=== PATIENT | female | born 1980 | race Caucasian/White ===

== ENCOUNTER 2017-01-31 11:56 | Emergency (ER) | payer BC ==
[2017-01-31] MEDS ORDERED: OXYCODONE-ACETAMINOPHEN 5-325 MG TABLET PO ONE (12:27)
[2017-01-31] MEDS ORDERED: ONDANSETRON 4 MG TAB.RAPDIS PO ONE (12:27)
--- NOTE | 2017-01-31 12:27 | ER Document Report ---
ED Medical Screen (RME) - General Stated Complaint: HEADACHE Notes: 36 yo female c/o headache since last night. headache all over the head. + nasuea. + photosensitivity. no neck pain + hx/o stroke, residual memory loss. last stroke in 2006. no neurological deficits noted, no slurred speech, no facial droop TRAVEL OUTSIDE OF THE [place] IN LAST 30 DAYS: No - Related Data Allergies/Adverse Reactions: nickel [Nickel] Allergy (Severe, Verified 01/31/17 12:21) rash penicillin G [Penicillin G] Allergy (Severe, Verified 01/31/17 12:21) Anaphylaxis Past Medical History - Past Medical History Cardiac Medical History: Denies: Hx Coronary Artery Disease, Hx Heart Attack, Hx Hypertension Pulmonary Medical History: Denies: Hx Asthma, Hx Bronchitis, Hx COPD, Hx Pneumonia Neurological Medical History: Reports: Hx Cerebrovascular Accident - 7 years ago. Denies: Hx Seizures Musculoskeltal Medical History: Denies Hx Arthritis Past Surgical History: Denies: Hx Hysterectomy, Hx Pacemaker - Immunizations Hx Diphtheria, Pertussis, Tetanus Vaccination: No
[2017-01-31] MEDS ORDERED: NORMAL SALINE 1000 ML 1,000 ML IV ONE (14:41)
[2017-01-31] MEDS ORDERED: MORPHINE SULFATE 10 MG/ML INJ IV ONE ×2 (14:41→20:13)
--- NOTE | 2017-01-31 14:51 | ER Document Report ---
ED General - General Chief Complaint: Headache Stated Complaint: HEADACHE Time seen by provider: 14:30 Mode of Arrival: Ambulatory Information source: Patient, Relative Notes: 36-year-old female reports sudden onset of diffuse headache last night while coughing. She reports some nausea and photophobia that began at the same time. 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 He reports related to that she had to the thromboses "burst" with subsequent memory loss. She reports she was diagnosed with a stroke at that point but has no other residual deficits. She has had no headaches like this since then up until last night. He is not aware of any fever at home. She reports she's been in normal state of health otherwise recently. 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 She has no complaints of pain numbness weakness to extremity, earache, sore throat, or new visual disturbances. She reports no relief with Zofran and Percocet administered in triage. She reports with the episode 10 years ago she was transferred to [facility] but doesn't believe she required any surgery for her problem. Physical Exam: General: Alert, appears uncomfortable HEENT: Normocephalic. Atraumatic. PERRLA. Extraocular movements intact. Discs sharp no papilledema sclerae anicteric no conjunctival injection area tympanic membranes and canals clear. Oropharynx clear. Neck: Supple. Non-tender. No JVD no carotid bruits Respiratory: No respiratory distress. Clear and equal breath sounds bilaterally. Cardiovascular: Regular rate and rhythm. Abdominal: Normal Inspection. Soft, non-tender. No distension. Normal Bowel Sounds. Back: Non-tender. No deformity or step off. Extremities: Moves all four extremities. Upper extremities: Normal inspection. Non-tender. Normal color. Normal ROM. Normal temperature. Lower extremities: Normal inspection. Non-tender. No edema. Normal color. Normal ROM. Normal temperature. Neurological: Cranial nerves III-XII grossly intact bilaterally. Strength 5/5 throughout. Sensation intact to light touch. Normal cognition. AAOx4. Normal speech. Patient does frequently repeat that she has a headache but otherwise answers questions appropriately. Cerebellar function intact by finger-nose test bilaterally. Patient is able to sit up without difficulty and has no nystagmus Psychological: Normal affect. Normal Mood. Skin: Warm. Dry. Normal color.m TRAVEL OUTSIDE OF THE [place] IN LAST 30 DAYS: No - Related Data Allergies/Adverse Reactions: nickel [Nickel] Allergy (Severe, Verified 01/31/17 12:21) rash penicillin G [Penicillin G] Allergy (Severe, Verified 01/31/17 12:21) Anaphylaxis Past Medical History - Social History Smoking Status: Current Every Day Smoker Chew tobacco use (# tins/day): Yes Family History: Other - Mother has what sounds like by description normal pressure hydrocephalus with ROOFING MACHINE TENDER shunt Patient has suicidal ideation: No Patient has homicidal ideation: No - Past Medical History Cardiac Medical History: Denies: Hx Coronary Artery Disease, Hx Heart Attack, Hx Hypertension Pulmonary Medical History: Denies: Hx Asthma, Hx Bronchitis, Hx COPD, Hx Pneumonia Neurological Medical History: Reports: Hx Cerebrovascular Accident - 7 years ago , Other - Sagittal sinus thrombosis. Denies: Hx Seizures Renal/ Medical History: Denies: Hx Peritoneal Dialysis Musculoskeltal Medical History: Denies Hx Arthritis Past Surgical History: Denies: Hx Hysterectomy, Hx Pacemaker - Immunizations Hx Diphtheria, Pertussis, Tetanus Vaccination: No Review of Systems - Review of Systems Constitutional: denies: Chills, Diaphoresis, Weakness EENT: denies: Ear pain, Throat pain Cardiovascular: denies: Chest pain, Syncope Respiratory: denies: Cough, Short of breath Gastrointestinal: denies: Abdominal pain, Diarrhea, Vomiting, Blood in vomit, Black stools, Rectal bleeding Genitourinary: denies: Burning, Dysuria Female Genitourinary: No symptoms reported Musculoskeletal: denies: Back pain, Muscle pain Skin: denies: Rash Hematologic/Lymphatic: denies: Swollen glands Neurological/Psychological: See HPI Physical Exam - Vital signs Vitals: Temp Pulse BP Pulse Ox 100.2 F 104 H 106/65 93 01/31/17 13:30 01/31/17 13:30 01/31/17 13:30 01/31/17 13:30 Course - Re-evaluation Re-evalutation: 01/31/17 23:31 On multiple re-evaluations patient has remained neurologically intact except for her chronic short-term memory problems. She is transient relief with morphine and Zofran she seemed to get more improvement in her headache with Reglan 10 mg IV. The patient reports that multiple family members confirm that her current symptoms and presentation are similar to what she had approximately 10 years ago resulting in a diagnosis of sagittal sinus thrombosis for which she was transferred to [facility]. The family brings her medical record from her initial admission [place] and discharge summary an H&P from her transfer to [facility] which showed that she had at that time an MRI showed multiple infarcts. She also did a LP that was negative. At [facility] she was violated by neurosurgery but never had any type of operative intervention. She also had a hypercoagulable workup which was negative for protein C and Cardiolipin. Given that history I discussed her negative CT brain findings with Dr. Watson and she agreed to perform MRI MRA [place] and MRV all of which been read as normal. Patient continued to have headaches after those results and given her low-grade fever I believe the lumbar puncture was required to definitively rule out life-threatening etiologies potentially debilitating etiologies and patient is in agreement. All she had receive medication for headache she is competent to consent for lumbar puncture this was performed without difficulty and shows no evidence for subarachnoid hemorrhage, meningitis, or encephalitis. I discussed these findings the patient is comfortable with discharge with outpatient follow-up. CT scans have shown sinusitis and I doubt that is the etiology for her headache but this will be covered with antibiotics. 01/31/17 23:40 - Vital Signs Vital signs: Temp Pulse Resp BP Pulse Ox 99.1 F 97 14 105/55 L 90 L 01/31/17 20:36 01/31/17 20:36 01/31/17 20:36 01/31/17 20:36 01/31/17 20:36 - Laboratory Result Diagrams: 01/31/17 15:20 01/31/17 15:20 Laboratory results interpreted by me: 01/31/17 01/31/17 15:20 15:20 RDW 14.6 H Seg Neutrophils % 83.0 H Lymphocytes % 5.4 L Absolute Lymphocytes 0.3 L Sodium 136.6 L - Diagnostic Test Radiology reviewed: Image reviewed, Reports reviewed Procedures - Lumbar Puncture Lumbar puncture Time completed: 10:10 Consent obtained: Yes Lumbar puncture pre-procedure: Betadine prep applied, Chloraprep applied, Sterile drapes applied Patient position: Lying Lumbar puncture location: L4-5 Anesthetic type: 1% Lidocaine mL's of anesthetic: 2 Amount/type of drainage: 6 mL clear fluid Number of attempts: 1 Complications: No Discharge - Discharge Clinical Impression: Headache Qualifiers: Headache type: unspecified Headache chronicity pattern: acute headache Intractability: intractable Qualified Code(s): R51 - Headache Condition: Stable Disposition: HOME, SELF-CARE Additional Instructions: Headache The physician does not feel that the headache you are experiencing has a serious underlying cause. Most headaches are due to emotional stress, with resultant muscle tension (tension headache). Occasionally, headaches are secondary to changes in the blood vessels of the scalp (vascular headache and migraine headache). Sometimes, a headache is the first symptom of another developing illness, such as a viral infection. You have no evidence of stroke, bleeding, meningitis, or other serious cause of your headache. The treatment of headaches varies with the severity and cause of the pain. Not all headaches need pain shots. In fact, there is evidence that using narcotics for headaches may make them worse in the long run. The physician will determine the therapy that's in your best interest. If you develop a fever, if the headache is different from any you've previously experienced, or if the headache progressively worsens, then call your physician at once or go to the emergency room. Prescriptions: Azithromycin [Zithromax 250 mg Tablet] 250 mg PO ASDIR PRN #6 tablet PRN Reason: Metoclopramide HCl [Reglan 10 mg Tablet] 10 mg PO ACHS PRN #20 tablet PRN Reason: For Headache Referrals: JULISA PALOMO MD [EMERITUS] - Follow up in 1 week
[2017-01-31 15:44] LABS: PROTHROMBIN TIME 14.1 SEC (11.4-15.4)
[2017-01-31 15:45] LABS: PARTIAL THROMBOPLASTIN TIME 32.2 SEC (23.5-35.8)
[2017-01-31 16:01] LABS: ABSOLUTE LYMPHOCYTES (AUTO) 0.3 10^3/uL (0.5-4.7); ABSOLUTE MONOCYTES (AUTO) 0.7 10^3/uL (0.1-1.4); ALANINE AMINOTRANSFERASE 35 U/L (9-52); ALBUMIN 4.4 g/dL (3.5-5.0); ALKALINE PHOSPHATASE 66 U/L (38-126); ANION GAP 11 (5-19); ASPARTATE AMINO TRANSFERASE 24 U/L (14-36); BASOPHILS % (AUTO) 0.6 % (0-2); BILIRUBIN,TOTAL 0.6 mg/dL (0.2-1.3); BLOOD UREA NITROGEN 10 mg/dL (7-20); CALCIUM 9.5 mg/dL (8.4-10.2); CARBON DIOXIDE 25 mmol/L (22-30); CHLORIDE 101 mmol/L (98-107); CREATININE RESULT 0.75 mg/dL (0.52-1.25); GLUCOSE 90 mg/dL (75-110); HEMATOCRIT 36.5 % (36.0-47.0); HEMOGLOBIN 12.4 g/dL (12.0-15.5); HGB HCT DIFFERENCE 0.7; LYMPHOCYTES % (AUTO) 5.4 % (13-45); MEAN CORPUSCULAR HEMOGLOBIN 30.3 pg (27.0-33.4); MEAN CORPUSCULAR HGB CONC 33.8 g/dL (32.0-36.0); MEAN CORPUSCULAR VOLUME 89 fl (80-97); POTASSIUM 3.9 mmol/L (3.6-5.0); RED BLOOD COUNT 4.09 10^6/uL (3.72-5.28); RED CELL DISTRIBUTION WIDTH 14.6 % (11.5-14.0); SODIUM 136.6 mmol/L (137-145); TOTAL PROTEIN 7.2 g/dL (6.3-8.2); WHITE BLOOD COUNT 6.1 10^3/uL (4.0-10.5)
[2017-01-31] MEDS ORDERED: ONDANSETRON HCL INJ/PF 4 MG/2 ML SDV IV ONE (20:14)
[2017-01-31] MEDS ORDERED: PROMETHAZINE HCL INJ 25 MG/1 ML VIAL IV ONE (21:15)
[2017-01-31] MEDS ORDERED: LIDOCAINE 1% INJ-PF (10 MG/ML) 30 ML SDV INJ ONE (21:16)
[2017-01-31] MEDS ORDERED: METOCLOPRAMIDE HCL INJ/PF 10 MG/2 ML SDV IV ONE (21:24)
[2017-01-31] MEDS ORDERED: METOCLOPRAMIDE HCL INJ/PF 10 MG/2 ML SDV ONE (21:26)
[2017-01-31 22:58] LABS: GLUCOSE,CSF 63 mg/dL (40-70)
[2017-01-31 23:09] LABS: APPEARANCE ALL TUBES CLEAR; APPEARANCE TUBE 1 CLEAR; APPEARANCE TUBE 2 CLEAR; APPEARANCE TUBE 3 CLEAR
[2017-01-31 23:10] LABS: RBC DILUENT USED NONE USED; RBC SIDE 1 0; RBC SIDE 2 0
[2017-01-31 23:11] LABS: RBC DILUTION FACTOR 1
[2017-01-31 23:12] LABS: TOTAL RBC SQUARES COUNTED 225
[2017-01-31 23:13] LABS: WHITE BLOOD CELL,CSF 1 /uL (0-5)
[2017-01-31 23:23] LABS: APPEARANCE ALL TUBES CLEAR; APPEARANCE TUBE 1 CLEAR; APPEARANCE TUBE 2 CLEAR; APPEARANCE TUBE 3 CLEAR
[2017-01-31 23:24] LABS: RBC DILUENT USED NONE USED; RBC DILUTION FACTOR 1; RBC SIDE 1 0; RBC SIDE 2 0
[2017-01-31 23:25] LABS: TOTAL RBC SQUARES COUNTED 225
[2017-01-31 23:26] LABS: WHITE BLOOD CELL,CSF 1 /uL (0-5)
[2017-02-01 00:54] VITALS: BP 109/61
== END 2017-02-01 00:15 | disposition home or self-care (01) ==
LOC: ER 11:56
PROC: 009U3ZX Drainage of Spinal Canal, Percutaneous Approach, Diagnostic (ICD-10-PCS; principal; 2017-01-31)
DX: R51 Headache (principal); R50.9 Fever, unspecified; R11.0 Nausea; H53.149 Visual discomfort, unspecified; H54.41 Blindness, right eye, normal vision left eye; I69.311 Memory deficit following cerebral infarction; F17.200 Nicotine dependence, unspecified, uncomplicated; Z91.048 Other nonmedicinal substance allergy status; Z87.892 Personal history of anaphylaxis; Z88.0 Allergy status to penicillin
CPT/HCPCS: 96376; 99284; 96374; 96375; 36415; 87070; 87205; 84703; 85025; 85610; 85730; 89050; 82945; 84157; 80053; 70551; 70544; 70450; 62270; S0119; J3490; J2765; J2270; J2405; J7030

== ENCOUNTER 2017-02-02 11:53 | Emergency (ER) | payer BC ==
--- NOTE | 2017-02-02 12:25 | ER Document Report ---
ED Medical Screen (RME) - General Stated Complaint: HEADACHE Notes: Patient was seen in the emergency room on 01/31 for the same headache. MRI, CT of head showed paranasal sinus disease, no other abnormality noted. patient still has the headache, ibuprofen is not helping. Patient has had some nausea and vomiting. I have greeted and performed a rapid initial assessment of this patient. A comprehensive ED assessment and evaluation of the patient, analysis of test results and completion of the medical decision making process will be conducted by additional ED providers. TRAVEL OUTSIDE OF THE [place] IN LAST 30 DAYS: No - Related Data Allergies/Adverse Reactions: nickel [Nickel] Allergy (Severe, Verified 01/31/17 12:21) rash penicillin G [Penicillin G] Allergy (Severe, Verified 01/31/17 12:21) Anaphylaxis Past Medical History - Past Medical History Cardiac Medical History: Denies: Hx Coronary Artery Disease, Hx Heart Attack, Hx Hypertension Pulmonary Medical History: Denies: Hx Asthma, Hx Bronchitis, Hx COPD, Hx Pneumonia Neurological Medical History: Reports: Hx Cerebrovascular Accident - 7 years ago. Denies: Hx Seizures Renal/ Medical History: Denies: Hx Peritoneal Dialysis Musculoskeltal Medical History: Denies Hx Arthritis Past Surgical History: Denies: Hx Hysterectomy, Hx Pacemaker - Immunizations Hx Diphtheria, Pertussis, Tetanus Vaccination: No Physical Exam - Vital signs Vitals: Temp Pulse Resp BP Pulse Ox 98.2 F 70 18 147/106 H 99 02/02/17 12:05 02/02/17 12:05 02/02/17 12:05 02/02/17 12:05 02/02/17 12:05 - General General appearance: Alert In distress: Moderate Notes: pt holding head. Pt got out of wheelchair and layed on floor in RME. Course - Vital Signs Vital signs: Temp Pulse Resp BP Pulse Ox 98.2 F 70 18 147/106 H 99 02/02/17 12:05 02/02/17 12:05 02/02/17 12:05 02/02/17 12:05 02/02/17 12:05
[2017-02-02] MEDS ORDERED: NORMAL SALINE 1000 ML 1,000 ML IV ONE (14:02)
[2017-02-02] MEDS ORDERED: METOCLOPRAMIDE HCL INJ/PF 10 MG/2 ML SDV IV ONE (14:03)
[2017-02-02] MEDS ORDERED: DIPHENHYDRAMINE HCL 50 MG/ML VIAL IV ONE (14:03)
--- NOTE | 2017-02-02 14:15 | ER Document Report ---
ED Headache - General Chief Complaint: Headache Stated Complaint: HEADACHE Mode of Arrival: Ambulatory Information source: Patient Notes: Patient presents complaining of headache that started early Sunday morning, 2 days ago. Patient states that the headache started suddenly 2 days ago and has persisted since then. Patient was evaluated in emergency department 2 days ago and had an extensive workup including CT, MRI, MRA, MRV of the brain as well as a lumbar puncture. Patient was discharged home with Reglan and azithromycin to treat sinus infection that was noted on CT scan. Patient thought that the Reglan was only to treat nausea symptoms and so did not take this medication while at home. Patient denies any headache improvement with the use of Motrin 400 mg [id number]. Patient states that she did have a low-grade temperature 2 days ago but none today. Patient does report lateral neck tenderness. Patient denies any recent sick contacts. Patient also reports that she recently started taking bupropion 2 weeks ago to treat depression. Patient states that prior to taking the bupropion she had recently started Prozac but discontinued this medication as it gave her headaches. Patient does report that her father is in the ICU, and tears up when she talks of this. 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 Patient states that her headache pain worsens when she sits and has photophobia. TRAVEL OUTSIDE OF THE [place] IN LAST 30 DAYS: No - HPI Patient complains to provider of: Headache Patient reports: Prior CVA, Other - Sagittal sinus thrombosis 10 years ago. No : Hx chronic headaches Onset was: Abrupt Timing: Still present Quality of pain: Sharp Pain Level: 5 Context: denies: Head injury, Meningitis exposure Associated symptoms: Neck pain, Photophobia. denies: Chills, Fever, Lightheaded , Nausea/vomiting, Stiff neck Exacerbated by: Light, Position Similar symptoms previously: Yes Recently seen / treated by doctor: Yes - Related Data Allergies/Adverse Reactions: nickel [Nickel] Allergy (Severe, Verified 02/02/17 12:25) rash penicillin G [Penicillin G] Allergy (Severe, Verified 02/02/17 12:25) Anaphylaxis Past Medical History - General Information source: Patient - Social History Smoking Status: Current Every Day Smoker Chew tobacco use (# tins/day): No Frequency of alcohol use: None Drug Abuse: None Occupation: [employer] Lives with: Family Family History: Other - Mother has what sounds like by description normal pressure hydrocephalus with HEARING SCREENER shunt Patient has suicidal ideation: No Patient has homicidal ideation: No - Past Medical History Cardiac Medical History: Denies: Hx Coronary Artery Disease, Hx Heart Attack, Hx Hypertension Pulmonary Medical History: Denies: Hx Asthma, Hx Bronchitis, Hx COPD, Hx Pneumonia Neurological Medical History: Reports: Hx Cerebrovascular Accident - 7 years ago. Denies: Hx Seizures Renal/ Medical History: Denies: Hx Peritoneal Dialysis Musculoskeltal Medical History: Denies Hx Arthritis Psychiatric Medical History: Reports: Hx Depression Past Surgical History: Reports: Hx Section. Denies: Hx Hysterectomy - Immunizations Hx Diphtheria, Pertussis, Tetanus Vaccination: No Review of Systems - Review of Systems Constitutional: No symptoms reported. denies: Fever EENT: No symptoms reported. denies: Blurred vision Cardiovascular: No symptoms reported. denies: Chest pain, Dizziness Respiratory: No symptoms reported. denies: Cough Gastrointestinal: No symptoms reported. denies: Vomiting Genitourinary: No symptoms reported Female Genitourinary: No symptoms reported Musculoskeletal: Neck pain. denies: Back pain Skin: No symptoms reported. denies: Rash Hematologic/Lymphatic: No symptoms reported Neurological/Psychological: Headaches. denies: Confusion, Weakness, Lost consciousness Physical Exam - Vital signs Vitals: Temp Pulse Resp BP Pulse Ox 98.2 F 70 18 147/106 H 99 02/02/17 12:05 02/02/17 12:05 02/02/17 12:05 02/02/17 12:05 02/02/17 12:05 - General General appearance: Appears well, Alert In distress: None - HEENT Head: Normocephalic, Atraumatic Eyes: Normal Conjunctiva: Normal Extraocular movements intact: Yes Eyelashes: Normal Pupils: PERRL Nerve palsy: No Ears: Normal External canal: Normal Tympanic membrane: Normal Nasal: Normal. No: Swelling Mouth/Lips: Normal Mucous membranes: Normal Pharynx: Normal. No: Erythema, Exudate Neck: Other - Patient with posterior paraspinal cervical muscle tenderness with palpation, no midline tenderness. No: Brudzinski, Kernig's, Lymphadenopathy, Meningismus - Respiratory Respiratory status: No respiratory distress Chest status: Nontender Breath sounds: Normal. No: Rales, Rhonchi, Stridor, Wheezing Chest palpation: Normal - Cardiovascular Rhythm: Regular Heart sounds: S1 appreciated, S2 appreciated Murmur: No - Abdominal Inspection: Normal Distension: No distension Bowel sounds: Normal Tenderness: Nontender Organomegaly: No organomegaly - Back Back: Normal. No: CVA tenderness, Vertebra tenderness - Extremities General upper extremity: Normal inspection, Normal ROM General lower extremity: Normal inspection, Normal ROM - Neurological Neuro grossly intact: Yes Cognition: Normal Orientation: AAOx4 [place] Coma Scale Eye Opening: Spontaneous [place] Coma Scale Verbal: Oriented [place] Coma Scale Motor: Obeys Commands [place] Coma Scale Total: 15 Speech: Normal. No: Dysarthria Cranial nerves: Normal. No: Facial palsy Cerebellar coordination: Normal, Heel-gordon, Finger-nose rhombey, Rapid alt. movements. No: Gait ataxia Motor strength normal: LUE, RUE, LLE, RLE - Psychological Associated symptoms: Depressed - Skin Skin Temperature: Warm Skin Moisture: Dry Skin Color: Normal Course - Re-evaluation Re-evalutation: 02/02/17 14:[address] cobb regarding patient presentation. Reviewed patient's previous ER visit diagnostic evaluation. Does not recommend any additional imaging studies or testing. Recommends possible Lidoderm patch for cervical tenderness. Agrees with pain management plan at this time. 02/02/17 15:29 Patient reports that headache pain is decreased from a 5 to a 3/5. Patient able to ambulate without difficulty to the bathroom unassisted. 02/02/17 16:57 Patient reports headache pain is improved, other not completely gone. Discussed possible treatment options including a possible blood patch. Patient declines having this procedure at this time and would like to see her she can manage her symptoms at home she had not previously been taking her Reglan that was prescribed. Discussed worsening signs or symptoms that patient should return to [facility] for. Patient verbalized understanding of her instructions. - Vital Signs Vital signs: Temp Pulse Resp BP Pulse Ox 98.7 F 54 L 16 97/59 L 97 02/02/17 17:35 02/02/17 17:35 02/02/17 17:35 02/02/17 17:35 02/02/17 17:35 - Diagnostic Test Radiology reviewed: Reports reviewed - Reviewed MRI, MRA, MRV, and CT report from previous ER visit Discharge - Discharge Clinical Impression: Headache Qualifiers: Headache type: unspecified Headache chronicity pattern: acute headache Intractability: intractable Qualified Code(s): R51 - Headache Condition: Stable Disposition: HOME, SELF-CARE Instructions: Headache ([facility]), Reglan ([facility]), Use of Diphenhydramine Additional Instructions: Return immediately for any new or worsening symptoms Followup with your primary care provider, call tomorrow to make a followup appointment You are on a medication, Wellbutrin, that can cause the side effect of headache pain. I would discuss with your doctor your headache symptoms and medication regimen. Take the Reglan your prescribed previously as directed to help with her symptoms. Stay well-hydrated, you can increase caffeinated drinks to help with your headache symptoms. Follow-up with a neurologist for further evaluation Finish your prescription for the antibiotics to treat for any possible sinusitis Forms: Return to Work Referrals: FAMILIA ROSA MD [ACTIVE STAFF] - 02/05/17
[2017-02-02] MEDS ORDERED: DEXAMETHASONE SOD PHOS INJ 10 MG/1 ML VIAL IV ONE (14:24)
[2017-02-02] MEDS ORDERED: NORMAL SALINE 1000 ML 1,000 ML IV PRN (15:28)
[2017-02-02] MEDS ORDERED: MORPHINE SULFATE 10 MG/ML INJ IV ONE (15:29)
[2017-02-02 17:48] VITALS: BP 97/59
== END 2017-02-02 17:35 | disposition home or self-care (01) ==
LOC: ER 11:53
DX: J32.9 Chronic sinusitis, unspecified (principal); Z91.14 Patient's other noncompliance with medication regimen; R51 Headache; M54.2 Cervicalgia; H53.149 Visual discomfort, unspecified; F32.9 Major depressive disorder, single episode, unspecified; F17.200 Nicotine dependence, unspecified, uncomplicated; Z79.899 Other long term (current) drug therapy; Z86.73 Personal history of transient ischemic attack (TIA), and cerebral infarction without residual deficits; Z88.0 Allergy status to penicillin
CPT/HCPCS: 99283; 96361; 96374; 96375; J1200; J2765; J2270; J7030; J1100

== ENCOUNTER 2017-08-12 07:36 | Emergency (ER) | payer BC ==
[2017-08-12 07:41] VITALS: BP 90/59
--- NOTE | 2017-08-12 07:47 | ER Document Report ---
HPI - HPI Patient complains to provider of: Cannot breathe through nose Onset: Other - 2 days ago Onset/Duration: Sudden Pain Level: 2 Context: 36-year-old female complaining of nasal congestion and inability to move air through each of her nostrils that started 2 days ago. She was exposed to the laundry I will with heavily scented detergents during a work-related in-service and is wondering if this is caused by an allergy. No fever or chills. No recent upper respiratory infection. Associated Symptoms: None Exacerbated by: Denies Relieved by: Denies - ROS ROS below otherwise negative: Yes Systems Reviewed and Negative: Yes All other systems reviewed and negative - DERM Skin Color: Normal Past Medical History - General Information source: Patient - Social History Smoking Status: Current Every Day Smoker Frequency of alcohol use: Rare Drug Abuse: None Lives with: Family Family History: Other - Mother has what sounds like by description normal pressure hydrocephalus with [employer]ER shunt Neurological Medical History: Reports: Hx Cerebrovascular Accident - 7 years ago Renal/ Medical History: Denies: Hx Peritoneal Dialysis Psychiatric Medical History: Reports: Hx Depression Past Surgical History: Reports: Hx Section - Immunizations Hx Diphtheria, Pertussis, Tetanus Vaccination: No Vertical Provider Document - CONSTITUTIONAL Agree With Documented VS: Yes Exam Limitations: No Limitations - INFECTION CONTROL TRAVEL OUTSIDE OF THE [place] IN LAST 30 DAYS: No - HEENT HEENT: Normocephalic. negative: Tympanic Membrane Red Notes: nasal turbinates edematous - NECK Neck: Supple. negative: Lymphadenopathy-Left, Lymphadenopathy-Right - RESPIRATORY Respiratory: Breath Sounds Normal, No Respiratory Distress O2 Sat by Pulse Oximetry: 99 - CARDIOVASCULAR Cardiovascular: Regular Rate, Regular Rhythm - MUSCULOSKELETAL/EXTREMETIES Musculoskeletal/Extremeties: MAEW, FROM - NEURO Level of Consciousness: Awake, Alert, Appropriate - DERM Integumentary: Warm, Dry Course - Vital Signs Vital signs: Temp Pulse Resp BP Pulse Ox 99.1 F 96 20 90/59 L 99 08/12/17 07:40 08/12/17 07:40 08/12/17 07:40 08/12/17 07:40 08/12/17 07:40 Discharge - Discharge Clinical Impression: nasal turbinate swelling Allergic rhinosinusitis Qualifiers: Chronicity: acute Allergic rhinitis trigger: unspecified Allergic rhinitis seasonality: non-seasonal Qualified Code(s): J30.89 - Other allergic rhinitis Condition: Good Disposition: HOME, SELF-CARE Instructions: Use of Diphenhydramine, Sinusitis ([facility]), Steroid Medication, Warm Packs ([facility]) Additional Instructions: topical nasal decongestant for 2 days only after you use the nasal spray use over the counter saline spray to help get the mucous out, then use the nasal steroid as prescribed to er if worse, any concerns take benadryl 25-50 mg every 4-6 hours as needed for allergy symptms see ENT doctor if persists Please complete the patient satisfaction survey if you get one, and return it.. If you do not receive a survey, then you can go to the [facility] website, [email or web address] and place your comments about your very good care. Thank you very much. It was a pleasure being your medical provider today. Prescriptions: Fluticasone Propionate [Flonase Nasal [place] 50 Mcg/[place] 16 gm] 1 spray NASL Q12 #1 inhaler Forms: Return to Work
[2017-08-12] MEDS ORDERED: IBUPROFEN 600 MG TABLET PO ONE (08:29)
== END 2017-08-12 08:37 | disposition home or self-care (01) ==
LOC: ER 07:36
DX: J30.89 Other allergic rhinitis (principal); R09.81 Nasal congestion; F17.200 Nicotine dependence, unspecified, uncomplicated; Z86.73 Personal history of transient ischemic attack (TIA), and cerebral infarction without residual deficits
CPT/HCPCS: 99283

== ENCOUNTER 2018-01-31 15:38 | Emergency (ER) | payer BC ==
[2018-01-31] MEDS ORDERED: FENTANYL CITRATE INJ/PF 100 MCG/2 ML AMPUL IV ONE (16:21)
--- NOTE | 2018-01-31 16:22 | ER Document Report ---
ED General - General Chief Complaint: Chest Wall Pain Stated Complaint: DIFFICULTY BREATHING Time Seen by Provider: 01/31/18 16:14 Mode of Arrival: Ambulatory Information source: Patient Notes: 37-year-old female history of cavernous sinus thrombosis presents with complaints of right lower rib wall pain. pt notes she took a deep breath and then the pain suddenly occurred. pt is a smoker, denies any previous similar episodes. TRAVEL OUTSIDE OF THE [place] IN LAST 30 DAYS: No - HPI Onset: Just prior to arrival Onset/Duration: Sudden Quality of pain: Sharp Severity: Mild Pain Level: 1 Associated symptoms: Body/muscle aches, Shortness of breath Exacerbated by: Movement, Coughing, Deep breathing Relieved by: Denies Similar symptoms previously: No Recently seen / treated by doctor: No - Related Data Allergies/Adverse Reactions: nickel [Nickel] Allergy (Severe, Verified 01/31/18 16:14) rash penicillin G [Penicillin G] Allergy (Severe, Verified 01/31/18 16:14) Anaphylaxis Past Medical History - Social History Smoking Status: Current Every Day Smoker Cigarette use (# per day): Yes Chew tobacco use (# tins/day): No Smoking Education Provided: Yes - Patient counselled regarding cessation for 4 minutes Frequency of alcohol use: Occasional Drug Abuse: None Family History: Other - Mother has what sounds like by description normal pressure hydrocephalus with ANALYTICAL TECHNICIAN shunt Patient has suicidal ideation: No Patient has homicidal ideation: No - Past Medical History Cardiac Medical History: Denies: Hx Coronary Artery Disease, Hx Heart Attack, Hx Hypertension Pulmonary Medical History: Denies: Hx Asthma, Hx Bronchitis, Hx COPD, Hx Pneumonia Neurological Medical History: Reports: Hx Cerebrovascular Accident - 7 years ago. Denies: Hx Seizures Renal/ Medical History: Denies: Hx Peritoneal Dialysis Musculoskeltal Medical History: Denies Hx Arthritis Psychiatric Medical History: Reports: Hx Depression Past Surgical History: Reports: Hx Section. Denies: Hx Hysterectomy, Hx Pacemaker - Immunizations Hx Diphtheria, Pertussis, Tetanus Vaccination: No Review of Systems - Review of Systems Notes: REVIEW OF SYSTEMS: CONSTITUTIONAL : Denies fever, chills, or sweats. Denies recent illness. EENT: Denies eye, ear, throat, or mouth pain or symptoms. Denies nasal or sinus congestion or discharge. Denies throat, tongue, or mouth swelling or difficulty swallowing. CARDIOVASCULAR: Denies chest pain. Denies palpitations or racing or irregular heart beat. Denies ankle edema. RESPIRATORY: chest wall pain, pain with movement GASTROINTESTINAL: Denies abdominal pain or distention. Denies nausea, vomiting , or diarrhea. Denies blood in vomitus, stools, or per rectum. Denies black, tarry stools. Denies constipation. GENITOURINARY: Denies difficulty urinating, painful urination, burning, frequency, blood in urine, or discharge. FEMALE GENITOURINARY: Denies vaginal bleeding, heavy or abnormal periods, irregular periods. Denies vaginal discharge or odor. MUSCULOSKELETAL: Denies back or neck pain or stiffness. Denies joint pain or swelling. SKIN: Denies rash, lesions or sores. HEMATOLOGIC : Denies easy bruising or bleeding. LYMPHATIC: Denies swollen, enlarged glands. NEUROLOGICAL: Denies confusion or altered mental status. Denies passing out or loss of consciousness. Denies dizziness or lightheadedness. Denies headache. Denies weakness or paralysis or loss of use of either side. Denies problems with gait or speech. Denies sensory loss, numbness, or tingling. Denies seizures. PSYCHIATRIC: Denies anxiety or stress. Denies depression, suicidal ideation, or homicidal ideation. ALL OTHER SYSTEMS REVIEWED AND NEGATIVE. PHYSICAL EXAMINATION: GENERAL: Well-appearing, well-nourished and in no acute distress. HEAD: Atraumatic, normocephalic. EYES: Pupils equal round and reactive to light, extraocular movements intact, conjunctiva are normal. ENT: Nares patent, oropharynx clear without exudates. Moist mucous membranes. NECK: Normal range of motion, supple without lymphadenopathy LUNGS: Breath sounds clear to auscultation bilaterally and equal. No wheezes rales or rhonchi. Point tenderness of the right mid clavicular R9-10 HEART: Regular rate and rhythm without murmurs ABDOMEN: Soft, nontender, nondistended abdomen. No guarding, no rebound. No masses appreciated. Female : deferred Musculoskeletal: Normal range of motion, no pitting or edema. No cyanosis. NEUROLOGICAL: Cranial nerves grossly intact. Normal speech, normal gait. Normal sensory, motor exams PSYCH: Normal mood, normal affect. SKIN: Warm, Dry, normal turgor, no rashes or lesions noted. Dictation was performed using [employer] recognition software Physical Exam - Vital signs Vitals: Temp Pulse BP Pulse Ox 98.9 F 87 105/62 98 01/31/18 15:47 01/31/18 15:47 01/31/18 15:47 01/31/18 15:47 Course - Re-evaluation Re-evalutation: 01/31/18 17:18 Patient was immediately sent for CT of the chest, I did not wait for labs given her history, I am awaiting official read however radiologist does not see a pulmonary emboli at this time 01/31/18 17:33 dr Gonzalez consulted, he evaluated image, agrees no pe, concern for pneumonic process , will start on antibiotics 01/31/18 17:39 Patient is noted to have a white count 17.9 which I believe may be secondary to pain versus pneumonic process, I discussed with the patient risks of this being a pulmonary emboli as well as very strict return precautions. She states she understands and will follow up with antenna design engineer. She overall looks well is in no distress will be discharged home with extremely close follow-up After performing a Medical Screening Examination, I estimate there is LOW risk for malignant otitis media, mastoiditis, MENINGITIS, or ACUTE CORONARY SYNDROME , thus I consider the discharge disposition reasonable. I have reevaluated this patient multiple times and no significant life threatening changes are noted. The patient and I have discussed the diagnosis and risks, and we agree with discharging home to follow-up on an outpatient basis with the understanding that symptoms and presentations can change. We also discussed returning to the Emergency Department immediately if new or worsening symptoms occur. We have discussed the symptoms which are most concerning (e.g., high fevers, confusion) that necessitate immediate return. - Vital Signs Vital signs: Temp Pulse Resp BP Pulse Ox 98.9 F 87 105/62 98 01/31/18 15:47 01/31/18 15:47 01/31/18 15:47 01/31/18 15:47 - Laboratory Result Diagrams: 01/31/18 16:38 01/31/18 16:38 Laboratory results interpreted by me: 01/31/18 16:38 WBC 17.9 H RDW 15.2 H Seg Neutrophils % 78.1 H Lymphocytes % 11.1 L Absolute Neutrophils 14.0 H Absolute Monocytes 1.5 H - Diagnostic Test Radiology reviewed: Image reviewed, Reports reviewed Discharge - Discharge Clinical Impression: Chest wall pain, Emphysema lung, Encounter for smoking cessation counseling, Pneumonia Condition: Stable Disposition: HOME, SELF-CARE Additional Instructions: You must return immediately if symptoms worsen or do any other concerns at all Prescriptions: Ketorolac Tromethamine [Toradol 10 mg Tablet] 10 mg PO Q8HP PRN #9 tablet PRN Reason: Azithromycin 250 mg PO ASDIR PRN #6 tablet PRN Reason: Nicotine [Nicoderm 7 mg/24 Hr Transdermal Patch] 1 patch TD DAILY #30 patch.td24 Oxycodone HCl/Acetaminophen [Percocet 5-325 mg Tablet] 1 tab PO Q6 #15 tab Referrals: MJ FIGUEROA MD [COMMUNITY BASED STAFF] - Follow up tomorrow CURSKARTHIK,MD ESAU [ACTIVE STAFF] - Follow up tomorrow
[2018-01-31 16:49] LABS: ABSOLUTE BASOPHILS # (AUTO) 0.1 10^3/uL (0.0-0.2); ABSOLUTE EOSINOPHILS # (AUTO) 0.3 10^3/uL (0.0-0.6); ABSOLUTE MONOCYTES (AUTO) 1.5 10^3/uL (0.1-1.4); BASOPHILS % (AUTO) 0.8 % (0-2); EOSINOPHILS % (AUTO) 1.7 % (0-6); HEMATOCRIT 39.2 % (36.0-47.0); HEMOGLOBIN 13.2 g/dL (12.0-15.5); LYMPHOCYTES % (AUTO) 11.1 % (13-45); MEAN CORPUSCULAR HEMOGLOBIN 30.1 pg (27.0-33.4); MEAN CORPUSCULAR HGB CONC 33.7 g/dL (32.0-36.0); MEAN CORPUSCULAR VOLUME 89 fl (80-97); MONOCYTES % (AUTO) 8.3 % (3-13); PLATELET COUNT 236 10^3/uL (150-450); RED CELL DISTRIBUTION WIDTH 15.2 % (11.5-14.0); SEGMENTED NEUTROPHILS % (AUTO) 78.1 % (42-78); TOTAL CELLS COUNTED % (AUTO) 100 %; WHITE BLOOD COUNT 17.9 10^3/uL (4.0-10.5)
[2018-01-31 17:07] LABS: ALANINE AMINOTRANSFERASE 31 U/L (9-52); ALBUMIN 4.7 g/dL (3.5-5.0); ALKALINE PHOSPHATASE 57 U/L (38-126); ANION GAP 9 (5-19); ASPARTATE AMINO TRANSFERASE 23 U/L (14-36); BILIRUBIN,DIRECT 0.3 mg/dL (0.0-0.4); BILIRUBIN,TOTAL 0.3 mg/dL (0.2-1.3); BLOOD UREA NITROGEN 15 mg/dL (7-20); CARBON DIOXIDE 27 mmol/L (22-30); CHLORIDE 105 mmol/L (98-107); GLUCOSE 84 mg/dL (75-110); POTASSIUM 4.2 mmol/L (3.6-5.0); SODIUM 140.8 mmol/L (137-145); TOTAL PROTEIN 7.7 g/dL (6.3-8.2)
[2018-01-31] MEDS ORDERED: KETOROLAC TROMETHAMINE INJ/PF 30 MG/1 ML SDV IV ONE (17:19)
--- NOTE | 2018-01-31 17:20 | RADIOLOGY REPORT (SQ) ---
EXAM DESCRIPTION: CTA CHEST COMPLETED DATE/TIME: 01/31/2018 4:56 pm REASON FOR STUDY: hx cavernous sinus thrombosis right chest pain, pleuritic COMPARISON: None. TECHNIQUE: CT scan of the chest performed using helical scanning technique with dynamic intravenous contrast injection. Images reviewed with lung, soft tissue and bone windows. Reconstructed coronal and sagittal MPR images reviewed. Additional 3 dimensional post-processing performed to develop Maximal Intensity Projection images (ND P). All images stored on PACS. All CT scanners at this facility use dose modulation, iterative reconstruction, and/or weight based d osing when appropriate to reduce radiation dose to as low as reasonably achievable (ALARA). [facility]: Dose Right [facility]: CareDose [facility]: Dose Right [facility]: Teradose 4D [facility]: [employer] CONTRAST TYPE AND DOSE: contrast/concentration: Isovue 370.00 mg/ml; Total Contrast Delivered: 62.0 ml; Total Saline Delivered: 102.0 ml Contrast bolus optimized for the pulmonary arteries. Not diagnostic for the aorta. RENAL FUNCTION: None required. The patient is less than 50 years old. RADIATION DOSE: CT Rad equipment meets quality standard of care and radiation dose reduction techniq ues were employed. CTDIvol: 13.2 - 14.3 mGy. DLP: 512 mGy-cm. . LIMITATIONS: None. FINDINGS: LUNGS AND PLEURA: There are abnormally enlarged airspaces in the bilateral upper lobes fro m centrilobular emphysema, best shown on axial images 21 through 45. In the periphery of the anterior right upper lobe, a peripheral infiltrate is present, best shown on axial images 56-63, sagittal images 13-18, and coronal images 16-20. This could represent a small fo cus of pneumonia. No definite left upper lobe pulmonary emboli are identified. No pleural effusions. No pneumothorax. Central airways are widely patent. AORTA AND GREAT VESSELS: No aneurysm. Contrast bolus not optimized for the aorta. HEART: No pericardial effusion. No significant coronary artery calcifications. PULMONARY ARTERIES: No emboli visualized in the main pulmonary arteries or the segmental branches. HILAR AND MEDIASTINAL STRUCTURES: No identified masses or abnormal nodes. HARDWARE: None in the chest. UPPER ABDOMEN: No significant findings. Limited exam. THYROID AND OTHER SOFT TISSUES: No masses. No adenopathy. BONES: No acute or significant finding. 3D MIPS: Confirm above findings. OTHER: No other significant finding. IMPRESSION: Small focus of airspace disease in the periphery anterior right upper lobe No pulmonary emboli are identified. Centrilobular emphysema in the bilateral upper lobes COMMENT: Quality ID # [id number]: Final reports with documentation of one or more dose reduction techniques (e.g., Automated exposure control, adjustment of the mA and/or kV according to patient size, use of iterative reconstruction technique) TECHNICAL DOCUMENTATION: JOB ID: [id number] [employer]- All Rights Reserved Reading location - IP/workstation name: [email or web address]
[2018-01-31 18:02] VITALS: BP 108/58
== END 2018-01-31 18:02 | disposition home or self-care (01) ==
LOC: ER 15:38
DX: J18.9 Pneumonia, unspecified organism (principal); J43.9 Emphysema, unspecified; R07.89 Other chest pain; F17.210 Nicotine dependence, cigarettes, uncomplicated; Z71.6 Tobacco abuse counseling; Z86.718 Personal history of other venous thrombosis and embolism
CPT/HCPCS: 99406; 99284; 96374; 96375; 36415; 85025; 80053; 71275; J3010; J1885

== ENCOUNTER → 2020-10-12 | Outpatient (CLI) | payer BC ==
--- NOTE | 2020-10-12 09:25 | ER [facility] ASSESSMENT REPORT ---
Intake - In the Last 14 days Have you traveled outside [place]?: No Have you been in close contact with someone CONFIRMED: Yes Worked in Healthcare?: No - Symptoms Subjective Fever([place] feverish): No Chills: No Muscule Aches: No Runny Nose: No Sore Throat: No Cough (New or worsening chronic cough): No Shortness of breath: No Nausea or Vomiting: No Headache: No Abdominal Pain: No Diarrhea(3 or more loose stools in last 24 hours): No - Do you have any of the following Chronic lung disease: Asthma or emphysema or COPD: No Cystic Fibrosis: No Diabetes: No High Blood Pressure: No Cardiovascular Disease: No Chronic Kidney Disease: No Chronic Liver Disease: No Chronic blood disorder like Sickle Cell Disease: No Weak immune system due to disease or medication: No Neurologic condition that limits movement: No Developmental delay - Moderate to Severe: No Recent (within past 2 weeks) or current : No Morbid Obesity (>100 pounds over ideal weight): No - Objective Temperature: 98.2 F Pulse Rate: 73 Respiratory Rate: 18 Blood Pressure: 97/52 O2 Sat by Pulse Oximetry: 99 Objective: Given above, testing performed: If Testing Performed: Test Specimen Type Sent to General - General Information source: Patient Notes: Patient presents to the [facility] for screening for the coronavirus. Patient reports recent exposure to someone who did test positive. - Related Data Allergies/Adverse Reactions: nickel [Nickel] Allergy (Severe, Verified 01/31/18 16:14) rash penicillin G [Penicillin G] Allergy (Severe, Verified 01/31/18 16:14) Anaphylaxis Past Medical History - General Information source: Patient - Social History Family History: Other - Mother has what sounds like by description normal pressure hydrocephalus with BUSINESS PROCESS MANAGER shunt Neurological Medical History: Reports: Hx Cerebrovascular Accident - 7 years ago. Denies: Hx Seizures Renal/ Medical History: Denies: Hx Peritoneal Dialysis Musculoskeletal Medical History: Denies Hx Arthritis Psychiatric Medical History: Reports: Hx Depression Past Surgical History: Reports: Hx Section Physical Exam - Notes Notes: The patient was evaluated during the global Covid 19 pandemic, and that diagnosis was suspected/considered upon their initial presentation. Their evaluation, treatment and testing was consistent with current guidelines for patients who present with complaints or symptoms that may be related to Covid 19 . Full physical exam could not be performed due to covid 19 isolation protocols. Constitutional: Nontoxic appearance, no acute distress Eyes: Nonicteric, extraocular movements intact, sclera clear Cardiovascular: Heart rate and rhythm regular, no JVD Respiratory: Breath sounds clear bilaterally, nonlabored breathing, no use of accessory muscles, no tachypnea Gastrointestinal: Abdomen not distended Muculoskeletal: Moves all extremities well Skin: Normal color Neuro: Awake alert oriented, normal speech Psych: Normal mood and affect Diagnostic Results Laboratory Results: Patient presents with exposure worrisome for possible Covid 19. Patient does not have emergency worrying symptoms such as difficulty breathing, shortness of breath, chest pain, pressure, confusion or cyanosis. Patient appears suitable for discharge as they are not of an advanced age, do not have any chronic medical conditions such as diabetes, CAD, immune deficiency, chronic lung disease or chronic kidney disease. Patient's vital signs are stable and patient is nontoxic in appearance. Good return precautions have been discussed with patient, patient verbalized understanding and is agreeable with discharge plan of care at this time. Patient Education/Counseling Counseling/Education: Patient was provided with discharge information including: As a person under investigation for Covid 19, the [place] department of Health and Human Services, division of public health advises you to adhere to the following guidance until your test results are reported to you. If your test result is positive, you will receive additional information from your provider and your local health department at that time. Remain at home until you are cleared by the health provider or public health authorities. Keep a log of visitors to your home, notify any visitors to your home of your isolation status. If you plan to move to a new address or leave the [facility], notify the local health department in your County. Call your doctor or seek care if you have an urgent medical need. Before seeking medical care, call ahead to get instructions from the provider before arriving at the medical office clinic or hospital. Notify them that you are being tested for the virus that causes Covid 19 so that arrangements can be made, as necessary, to prevent transmission to others in the healthcare setting. Next, notify the local health department in your county. If a medical emergency arises and you need to call 911, inform the first res ponders that you are being tested for the virus that causes Covid 19. Next, notify the local health department in your county. [facility] Discharge - Discharge Clinical Impression: Encounter for screening laboratory testing for COVID-19 virus in asymptomatic patient Condition: Stable Disposition: Home; Selfcare
[2020-10-12 09:48] VITALS: BP 97/52
== END ==
LOC: RDC 08:45
PROVIDERS: ATTEND Nurse Practitioner Family
DX: Z20.828 Contact with and (suspected) exposure to other viral communicable diseases (principal)
CPT/HCPCS: 99201; 99211; U0003; C9803; 87635